=== PATIENT | male | born 1990 | race Caucasian/White ===

== ENCOUNTER 2019-12-21 23:26 | Emergency (ER) | payer OTHER ==
[~2019-12-21] VITALS: Ht 177.8 cm; Wt 90.7 kg
[2019-12-21 23:45] VITALS: BP 116/73; Ht 177.8 cm; Wt 90.7 kg
== END 2019-12-22 00:05 | disposition other institution (70) ==
LOC: ED 23:26
DX: Z02.89 Encounter for other administrative examinations (principal)